=== PATIENT | male | born 1955 | race Two or more races ===

== ENCOUNTER → 2019-03-24 | Outpatient (CLI) | payer BC, MEDICARE ==
--- NOTE | 2019-03-24 12:28 | RAD ---
ESOPHAGRAM 03/14/2019. Reason for study: Difficulty swallowing for 3 months.. Comparison studies: None. Technique: Esophagram was performed utilizing double contrast upright examination, single contrast prone examination, and cine evaluation of cervical esophageal swallow function. Fluoroscopy time: 1.4 minutes Number of images: 7 Findings: Dextroconvex scoliosis of the thoracic spine is noted. Barium swallow was performed without difficulty. Esophageal peristalsis and motility were normal. No mucosal abnormalities. No gastroesophageal reflux or hiatal hernia. No esophageal diverticulum. Fundus of the stomach was unremarkable. There is poor epiglottic inversion with restricted pharyngeal peristalsis resulting in aspiration of thin barium liquids. A definite mucosal lesion is not visualized, however evaluation with CT may be of benefit. Barium pill is ingested without difficulty. No stricture is suspected. IMPRESSION: 1. No suspicious mucosal abnormality involving the esophagus. 2. Aspiration is noted with thin liquids. There is poor epiglottic inversion. Restricted pharyngeal peristalsis. Further evaluation with CT neck or direct visualization may be of benefit to exclude neoplastic etiology. Electronically signed by: Ester Boothe MD (03/24/2019 12:24 PM) [email or web address]
== END | disposition home or self-care (01) ==
LOC: RAD 08:02
PROVIDERS: ATTEND Family Medicine
DX: R13.12 Dysphagia, oropharyngeal phase (principal); M41.84 Other forms of scoliosis, thoracic region
CPT/HCPCS: 74220

== ENCOUNTER → 2019-04-03 | Outpatient (CLI) | payer BC, MEDICARE ==
[~2019-04-03] MED LIST: IOHEXOL 300 MG/ML 75 ML VIAL. IV ONE
--- NOTE | 2019-04-03 17:32 | RAD ---
CT study of the soft tissues of the neck with contrast Clinical indications: Hard time swallowing. Poor epiglottic inversion and restricted pharyngeal peristalsis seen on recent esophagram. Evaluation for possible neck mass causing this. TECHNIQUE: After IV infusion of 75 cc of Omnipaque 300, helical CT scanning of the soft tissues of the neck were performed. Multiplanar 2-D reconstructions were generated. PQRS compliance Statement One or more of the following individualized dose reduction techniques were utilized for this study: 1. Automated exposure control 2. Adjustment of the mA and/or kV according to patient size 3. Use of iterative reconstruction technique FINDINGS: The parotid and submandibular salivary glands are unremarkable. The epiglottis and aryepiglottic folds and true cords and false cords and preepiglottic fat space are unremarkable. Mild sublingual tonsillar hyperplasia is seen at the base of the tongue. Otherwise no soft tissue mass of the base of the tongue is evident. The adenoids and palatine tonsils are not abnormally enlarged. No enlarged cervical lymphadenopathy is evident. No soft tissue abscess is seen. The thyroid gland is unremarkable. No lytic process evident. No opacification of the paranasal sinuses is seen. The frontal sinuses are not seen in this study. No opacification of the middle ear cavities cavities or mastoid sinuses is evident. Dental disease is seen involving the mandibular and maxillary teeth. IMPRESSION: No soft tissue mass or enlarged cervical lymphadenopathy. Dental disease. Electronically signed by: Keaton Mariano MD (04/03/2019 5:29 PM) [facility]
== END | disposition home or self-care (01) ==
LOC: CT 10:57
PROVIDERS: ATTEND Family Medicine
DX: J35.1 Hypertrophy of tonsils (principal); K04.90 Unspecified diseases of pulp and periapical tissues
CPT/HCPCS: 70491; Q9967